=== PATIENT | male | born 1990 | race Caucasian/White ===

== ENCOUNTER 2021-11-20 17:29 | Emergency (ER) | payer BC, MEDICAID ==
[~2021-11-20] VITALS: Ht 175.3 cm; Wt 72.6 kg
[2021-11-20 17:31] VITALS: BP 156/97
[2021-11-20] MEDS ORDERED: methylPREDNISolone SOD SUCC 125 MG/2 ML VL ONE (17:37)
[2021-11-20] MEDS ORDERED: diphenhdrAMINE HCL 50 MG/1 ML VL ONE (17:37)
[2021-11-20] MEDS ORDERED: diphenhdrAMINE HCL 50 MG/1 ML VL IM ONE (17:45)
[2021-11-20] MEDS ORDERED: methylPREDNISolone SOD SUCC 125 MG/2 ML VL IM ONE (17:45)
== END 2021-11-20 21:01 | disposition left against medical advice (07) ==
LOC: ER 17:29
DX: T78.40XA Allergy, unspecified, initial encounter (principal); Z53.21 Procedure and treatment not carried out due to patient leaving prior to being seen by health care provider; X58.XXXA Exposure to other specified factors, initial encounter
CPT/HCPCS: J1200; J2930